=== PATIENT | male | born 2000 | race Caucasian/White ===

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

== ENCOUNTER → 2020-07-01 | Outpatient (CLI) | payer OTHER | END | disposition home or self-care (01) | LOC: LABWHC1 09:19 | PROVIDERS: ATTEND Surgery | DX: Z01.812 Encounter for preprocedural laboratory examination (principal); Z20.828 Contact with and (suspected) exposure to other viral communicable diseases | CPT/HCPCS: U0003; C9803 ==

== ENCOUNTER 2020-07-04 10:17 | Day surgery (SDC) | payer OTHER ==
[2020-07-02 14:45] VITALS: BMI 19.5
[~2020-07-04 10:17] MED LIST: LACTATED RINGERS 1,000 ML IV SCH
[2020-07-04 10:34] VITALS: RESP 16; TEMP 97
[2020-07-04] MEDS ORDERED: LIDOCAINE 1% (10MG/ML) FOR IV START INTRADERMA ONE (10:35)
[2020-07-04] MEDS ORDERED: PROPOFOL 10 MG/ML 20 ML VIAL IV ONE (10:46)
--- NOTE | 2020-07-04 11:02 | P.PCN ---
Date of Procedure: 07/04/20 Preoperative Diagnosis: Dysphagia Postoperative Diagnosis: Gastritis Procedure(s) Performed: EGD with biopsies Anesthesia: JACK Surgeon: Checo Jordan Pathology: other (Biopsies of duodenum, antrum, esophagus) Condition: stable Disposition: same day Indications for Procedure: 19-year-old male presented to the surgical clinic with complaints of some dysphagia. He has tried PPI without any significant success. Plan is for upper endoscopy for further evaluation. Risks, benefits and alternatives were provided to the patient. Consent was provided prior to attending the endoscopy suite. Operative Findings: Mild inflammatory changes of the stomach, gastritis Description of Procedure: The patient was brought into the endoscopy suite. She was then placed in left lateral decubitus position and adequate sedation was achieved using conscious sedation. A bite block was placed and an endoscope was placed in the oropharynx and advanced under endoscopic visualization. The endoscope was advanced through the esophagus into the stomach, through the gastric antrum and into the pylorus. The third portion of the duodenum was examined. The endoscope was then slowly withdrawn. The first portion of duodenum was noted to look normal overall. Biopsies were taken. The antrum was noted to have mild inflammatory changes. Biopsies were taken. The gastric body distended normally and gastric folds appeared normal and flattened with insufflation. A retroflexed view the fundus and GE junction revealed no significant hiatal hernia. Esophagus appeared endoscopically normal. Biopsies were taken of the distal esophagus. The proximal and midesophagus were examined closely with no evidence of intrinsic mass or extrinsic mass effect. Excess air was removed and the scope was withdrawn and the procedure was completed. The patient was then sent to postanesthesia care unit in stable condition.
[2020-07-04 11:22] VITALS: BP 114/67; PULSE 72
== END 2020-07-04 11:40 | disposition home or self-care (01) ==
LOC: ORWHC2ENDO 10:17
PROVIDERS: ATTEND Surgery
DX: K29.70 Gastritis, unspecified, without bleeding (principal); K20.90 Esophagitis, unspecified without bleeding
CPT/HCPCS: 88305; 43239; J2704